=== PATIENT | female | born 1995 | race Caucasian/White ===

== ENCOUNTER 2016-09-09 07:22 | Inpatient (IN) | payer BC ==
[~2016-09-09] VITALS: Ht 157.5 cm; Wt 68.0 kg
[2016-09-09] VITALS (12 sets, daily range): BP systolic 111–121; BP diastolic 56–75
[2016-09-09] MEDS ORDERED: PRENATAL TABLE1 EAC3 PO (08:00)
[2016-09-09 09:10] LABS: EOSINOPHIL (%) 0.1 % (0-5); HEMATOCRIT 33.4 % (36.0-46.0); IMMATURE GRANULOCYTE (%) 0.4 % (0.0-0.7); LYMPHOCYTE COUNT 1.3 K/uL (1.0-2.8); MCH 27.9 PG (29.0-34.0); MCHC 32.6 G/DL (30.0-36.0); MCV 85.6 FL (83-99); MEAN PLAT.VOLUME 9.9 uM^3 (9.5-12.4); MONOCYTE (%) 6.6 % (3-12); MONOCYTE COUNT 0.5 K/uL (0-0.8); NEUTROPHIL (%) 76.7 % (45-76); PLATELET COUNT 156 K/uL (156-360); RBC DIS.WIDTH-CV 13.4 % (11.8-14.6); RBC DIS.WIDTH-SD 41.5 % (39-53); WHITE BLOOD COUNT 7.8 K/uL (4.1-10.2)
[2016-09-09 09:28] LABS: AMPHETAMINE NEGATIVE (500 ng/mL); BARBITURATES NEGATIVE (200 ng/mL); BENZODIAZEPINES NEGATIVE (150 ng/mL); COCAINE NEGATIVE (150 ng/mL); INTERNAL CONTROLS VALID? YES; METHADONE NEGATIVE (200 ng/mL); METHAMPHETAMINE NEGATIVE (500 ng/mL); OPIATES (MORPHINE) NEGATIVE (100 ng/mL); OXYCODONE NEGATIVE (100 ng/mL); PHENCYCLIDINE NEGATIVE (25 ng/mL); PROPOXYPHENE NEGATIVE (300 ng/mL); THC CANNABINOIDS NEGATIVE (50 ng/mL); TRICYCLIC ANTIDEPRESSANTS NEGATIVE (300 ng/mL)
[2016-09-09] MEDS ORDERED: IBUPROFEN800 MG PO (16:16)
[2016-09-10 10:00] VITALS: BP 118/67
[2016-09-10 15:17] VITALS: BP 116/58
[2016-09-11 00:35] VITALS: BP 115/67
[2016-09-11 08:22] VITALS: BP 111/64
== END 2016-09-11 16:00 | disposition home or self-care (01) | DRG 775 ==
LOC: LDRP-OP 07:22 → 2WEST 07:23 → LDRP-OP 15:26 → 2WEST 09-11 16:00 → LDRP-OP 10-09 13:47
PROVIDERS: Advanced Practice Midwife
PROC: 10E0XZZ Delivery of Products of Conception, External Approach (ICD-10-PCS; principal; 2016-09-09)
PROC: 0HQ9XZZ Repair Perineum Skin, External Approach (ICD-10-PCS; principal; 2016-09-09)
PROC: 3E033VJ Introduction of Other Hormone into Peripheral Vein, Percutaneous Approach (ICD-10-PCS; 2016-09-09)
DX: O99.824 Streptococcus B carrier state complicating childbirth (principal); O70.0 First degree perineal laceration during delivery; O99.344 Other mental disorders complicating childbirth; Z3A.40 40 weeks gestation of pregnancy; F42.8 Other obsessive-compulsive disorder; F95.2 Tourette's disorder; Z37.0 Single live birth; Z88.0 Allergy status to penicillin
CPT/HCPCS: 85025; J2540; J7120